=== PATIENT | male | born 1955 | race Caucasian/White ===

== ENCOUNTER 2022-03-17 10:46 | Outpatient (CLI) | payer MEDICARE, SELFPAY ==
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
--- OUTSIDE RECORDS SUMMARY | 2022-03-17 11:02 | XMS_ITS ---
:1955 Author Care Team Providers Name Role Phone JELLY LOFTON MD Primary Care Provider [phone] Allergies Code Code System Name Reaction Severity Status Onset Penicillin ? ? Active 8 Medications Name Status Start Date Stop Date ? ? coenzyme Q10 100 mg capsule Active ? Not available TAKE 1 CAPSULE BY MOUTH ONE TIME DAILY cyclobenzaprine 10 mg tablet Active ? Not available TAKE ? TO 1 TABLET (5-10MG) BY MOUTH THREE TIMES DAILY NEEDE D diclofenac 1 % topical gel Active ? Not a vailable APPLY TOPICALLY TO AFFECTED AREA 2 TO 4 GRAMS 4 TIMES DAILY NEEDED finasteride 5 mg tablet Active ? Not avai lable TAKE 1 TABLET BY MOUTH ONE TIME DAILY rosuvastatin 5 mg tablet Active ? Not luis antonio ilable TAKE 1 TABLET BY MOUTH ONE TIME DAILY triamcinolone acetonide 0.1 % topical ointment Active ? Not available APPLY TOPICALLY TO AFFECTED AREAS 2 TIMES DAILY NEEDED Problems Name Status Onset Date Source ? Raised Prostate Specific Antigen Active 07/21/2017 History Procedures Date Name Performed by ? 04/17/2011 Colonoscopy Information not avai lable Results Lab Results Date Name Specimen Result Interpretation Description Value Range Status Address ? 11/21/2020 PSA, Serum or Plasma ? PSA, Total 5.1 ng/m l ? ? 11/21/2020 PSA, Serum or Plasma ? No observation recor ded. ? ? ? 05/09/2020 PSA, Serum or Plasma ? No observation recor ded. ? PSA, Serum or Plasma ? PSA, Total 4.7 ng/ml ? ? Past Encounters 11/21/2020 Raised Prostate Specific Antigen; Indura tion Penis Plastica Saul Ramirez MD: [address] [place] [address], Ph. Social History Tobacco Smoking Status Never Smoker Vaccine List Notes: No pneumococcal vaccine given p er [facility] Plan of Care Reminders Provider Appointments None recorded. ? ? Lab None recorded. ? ? Referral None recorded. ? ? Procedures None recorded. ? ? Surgeries None recorded. ? ? Imaging None recorded. ? ? Vitals 11/21/2020 03:00PM ESTABLISHED 10 Height Weight BMI 6 ft 1 in 205 lbs 27 kg/m2 05/09/2020 08:50AM ESTABLISHED 10 Height Weight BMI 6 ft 1 in 205 lbs 27 kg/m2
[2022-03-17 15:31] LABS: Albumin* 4.6 g/dL (3.3-5.0); Chloride* 102 mmol/L (96-114)
[2022-03-17 15:32] LABS: Potassium* 4.7 mmol/L (3.6-5.1); Sodium* 139 mmol/L (135-149)
[2022-03-17 15:34] LABS: Alkaline Phosphatase* 81 U/L (40-150); Aspartate Amino Transferase* 22 U/L (12-35); Bilirubin Total* 0.5 mg/dL (0.1-1.5); Blood Urea Nitrogen* 17 mg/dL (7-30); Carbon Dioxide* 31 mmol/L (20-32); Cholesterol* 175 mg/dL (90-199); Creatinine* 0.8 mg/dL (0.5-1.5); Estimated Glomerular Filt Rate 96 ml/min; Total Protein* 7.2 g/dL (6.0-8.3)
[2022-03-17 15:35] LABS: Alanine Aminotransferase* 23 U/L (4-50); Calcium* 9.6 mg/dL (8.4-10.6); Glucose* 90 mg/dL (60-115); HDL Cholesterol* 34 mg/dL (>=40); LDL Cholesterol Calculated 91 mg/dL (<100); Triglycerides* 248 mg/dL (40-149)
== END 2022-03-17 10:47 | disposition home or self-care (01) ==
PROVIDERS: PCP Family Medicine; Visit Provider Family Medicine
DX: E78.1 Pure hyperglyceridemia (principal); R73.01 Impaired fasting glucose
CPT/HCPCS: 80053; 80061

== ENCOUNTER 2022-07-27 10:17 | Outpatient (CLI) | payer MEDICARE, SELFPAY | END 2022-07-27 10:18 | disposition home or self-care (01) | LOC: OP CLINIC 10:18 | PROVIDERS: PCP Family Medicine; Visit Provider Surgery | DX: Z12.11 Encounter for screening for malignant neoplasm of colon (principal); K63.5 Polyp of colon; K57.30 Diverticulosis of large intestine without perforation or abscess without bleeding | CPT/HCPCS: 45385; 88305; 99153; J2250; J3010 ==

== ENCOUNTER 2022-08-07 10:06 | Emergency (ER) | payer MEDICARE, SELFPAY ==
[2022-08-07 10:18] VITALS: BP 142/94; PULSE 105; RESP 20; TEMP 35.7; O2SAT 96; BMI 27.0
--- NOTE | 2022-08-07 10:39 | ED.NURSE ---
Patient with bladder scan reading at 660ml. Tobias catheter placed to fully drain bladder. 16 Fr tobias catheter inserted without issue. Keri color urined drained for 1000 plus ml with pink tinged urine draining at some minutes. Patient expresses relief in abdominal pressure.
[2022-08-07 11:04] LABS: Appearance Urine Cloudy (Clear); Bilirubin Urine Negative (Negative); Blood Urine 3+ (Negative); Color Urine Yellow (Yellow); Glucose Urine Negative (Negative); Ketones Urine Negative (Negative); Leukocyte Esterase Urine Negative (Negative); Nitrite Urine Negative (Negative); Protein Urine Negative (Negative); Urobilinogen Urine 0.2 (0.2-1.0)
[2022-08-07 11:06] LABS: Basophils Percent Auto 0.1 % (0.0-3.0); Eosinophils Percent Auto 0.8 % (0.0-7.0); Hematocrit 40.4 % (37.0-53.0); Hemoglobin* 13.6 gm/dL (13.5-17.5); Mean Corpuscular HGB Conc 34 gm/dL (32-36); Mean Corpuscular Hemoglobin 30 pg (26-34); Mean Corpuscular Volume 89 fL (80-100); Monocytes Percent Auto 9.8 % (0.0-11.0); Neutrophils Percent Auto 75.3 % (42.0-72.0); Platelet Count* 344 K/uL (140-440); RDW Coefficient of Variation % 12.7 % (11.5-15.5); Red Blood Count 4.56 m/uL (4.30-5.90); White Blood Count* 15.54 K/uL (4.50-11.00)
[2022-08-07 11:18] LABS: Slide Review Reflex No
[2022-08-07 11:19] LABS: Chloride* 107 mmol/L (96-114); Potassium* 4.5 mmol/L (3.6-5.1); Sodium* 140 mmol/L (135-149)
[2022-08-07 11:22] LABS: Blood Urea Nitrogen* 14 mg/dL (7-30); Carbon Dioxide* 28 mmol/L (20-32); Creatinine* 0.9 mg/dL (0.5-1.5); Estimated Glomerular Filt Rate 93 ml/min; Glucose* 105 mg/dL (60-115)
[2022-08-07 11:22] LABS: Bacteria Urine Few; RBC Urine >100 (0-2); Squamous Epithelial Cell Urine Few (None-Few)
[2022-08-07 11:23] LABS: Calcium* 8.9 mg/dL (8.4-10.6)
--- NOTE | 2022-08-07 11:39 | ED.GENADULT ---
HPI - General Adult General Chief complaint: Urogenital Problems, Male Stated complaint: Lower abdominal pain Time Seen by Provider: 08/07/22 10:30 Source: patient Mode of arrival: ambulatory Limitations: no limitations History of Present Illness HPI narrative: 66-year-old male coming in today complaining of lower abdominal pain for several days. Patient states that he has had decreased urine output for these last 3 days. He generally gets up 1-2 times per night to urinate but has not been able to urinate at night. He does state that he takes shower in the morning and then he urinates but he feels like he does not fully empty his bladder. This morning he woke up urinated a little bit during shower but felt worsening pressure and discomfort in his lower abdomen so he presents for evaluation. He denies any blood in his urine. He denies any nausea or vomiting. No fevers or chills. He was recently treated for strep pharyngitis with azithromycin which he just finished, throat is feeling much better. Patient does state that he has a history of BPH, has never had any urinary issues in the past. Related Data Home Medications Medication Instructions Recorded Confirmed acetaminophen 500 mg tablet mg PO PRN 03/17/22 08/03/22 ascorbate calcium (vitamin C) PO 03/17/22 08/03/22 coenzyme Q10 100 mg capsule 100 mg PO DAILY 03/17/22 08/07/22 finasteride 5 mg tablet 5 mg PO DAILY 03/17/22 08/07/22 magnesium oxide 250 mg PO DAILY 03/17/22 08/07/22 niacin 250 mg capsule,extended 250 mg PO QDAY 06/23/22 08/07/22 release Previous Rx's Medication Instructions Recorded rosuvastatin 5 mg tablet 5 mg PO DAILY #90 tabs 04/29/22 peg 3350-electrolytes 236 4,000 ml PO DIRECTED PRN prep 06/23/22 gram-22.74 gram-6.74 gram-5.86 #4,000 mL gram solution (Golytely) cephalexin 500 mg capsule 500 mg PO TID 7 days #21 caps 08/07/22 Allergies Allergy/AdvReac Type Severity Reaction Status Date / Time penicillin V Allergy Unknown Rash Verified 08/03/22 13:00 Review of Systems Status of ROS: Reports: 10 or more systems reviewed and unremarkable except as noted in History and below PFSH [facility] Medical History Encounter for annual wellness exam in Medicare patient History of echocardiography History of thyroid nodule Surgical History History of appendectomy History of radiofrequency ablation (RFA) procedure for cardiac arrhythmia History of tonsillectomy Family History Mother Alzheimers disease Father Prostate cancer Social History Narrative: Patient is retired. Drinks a little bit of wine daily. Smoking Status: Never smoker Do you use any of these nicotine containing products: None Second hand tobacco smoke exposure: No How often do you have a drink containing alcohol: never How many standard drinks containing alcohol do you have on a typical day: 1 or 2 AUDIT-C Alcohol total score: 0 Non-prescribed substance use: denies use Little interest or pleasure in doing things: not at all Feeling down, depressed, or hopeless: not at all Exam Narrative: Exam Narrative: Well-nourished well-developed patient in no acute distress. Alert and oriented. Answers questions appropriately. Mood and affect are appropriate. Thoughts are goal oriented and rational. No tangential or magical thinking noted. Patient speaks in full sentences without needing to catch their breath. HEENT: Normocephalic atraumatic. Pupils are equally round reactive to light. Extraocular muscles are intact. Conjunctivae are moist without any icterus noted. Moist mucous membranes. Posterior pharynx is normal. Neck is soft without any lymphadenopathy or thyromegaly. No masses are appreciated. Cardiovascular: Heart is regular rate and rhythm S1 and S2 are present without any murmurs. Lungs: Clear to auscultation bilaterally no wheezes rhonchi or rales are appreciated. Patient takes deep breaths without any discomfort. Abdomen: Soft and nontender nondistended with normal bowel sounds. No guarding or rebound. No masses or organomegaly appreciated. Extremities: Bilateral lower extremities are without edema. Normal DP and PT pulses. Skin: Well perfused without any obvious rashes. : Colón is in place, approximately 1300 mL of clear sanguinous urine was obtained. Const: Vital Signs, click to edit/add: Vital Signs - 24 hr 08/07/22 10:18 Temperature 96.2 F L Pulse Rate [Pulse Oximeter] 105 H Respiratory Rate 20 Blood Pressure [Le ft Upper Arm] 142/94 H Pulse Oximetry 96 Oxygen Delivery Me thod Room Air Course Course Hospital Course: Upon arrival patient did have a bladder scan which showed greater than 800 mL of urine, Colón was placed right away and approximately 1300 mL of pink clear urine was evacuated. Patient felt relief immediately from his discomfort. We did check a CBC which showed elevated white count at above 15,000, normal hemoglobin and hematocrit. Urinalysis showed blood, but no other evidence of infection. Of note, Colón placement was not difficult or traumatic. Vital Signs Vital signs: Initial Vital Signs Temperature 96.2 F L 08/07/22 10:18 Temperature Source Temporal Artery Scan 08/07/22 10:18 Pulse Rate 105 H 08/07/22 10:18 Pulse Rhythm 08/07/22 10:18 Respiratory Rate 20 08/07/22 10:18 Blood Pressure 142/94 H 08/07/22 10:18 Blood Pressure Mean 110 08/07/22 10:18 Blood Pressure Position Semi-Fowlers 08/07/22 10:18 Pulse Oximetry 96 08/07/22 10:18 Oxygen Delivery Method 08/07/22 10:18 Vital Signs Temperature 96.2 F L 08/07/22 10:18 Pulse Rate 105 H 08/07/22 10:18 Respiratory Rate 20 08/07/22 10:18 Blood Pressure 142/94 H 08/07/22 10:18 Pulse Oximetry 96 08/07/22 10:18 Oxygen Delivery Method 08/07/22 10:18 Temperature 96.2 F L 08/07/22 10:18 Pulse Rate 105 H 08/07/22 10:18 Respiratory Rate 20 08/07/22 10:18 Blood Pressure 142/94 H 08/07/22 10:18 Pulse Oximetry 96 08/07/22 10:18 Oxygen Delivery Method 08/07/22 10:18 Medical Decision Making MDM Narrative Medical decision making narrative: 66-year-old male with urinary retention and gross hematuria. At this time we will treat him with Keflex t.i.d. and have him follow up with primary care in 3-4 days and Urology if needed. Colón will be left in place until patient has primary care follow-up. Patient was agreeable and had no other questions. Lab Data Lab results reviewed: Yes I reviewed the patient's lab results Labs: Lab Results 08/07/22 08/07/22 08/07/22 Range/Units 10:30 10:57 10:57 WBC 15.54 H (4.50-11.00) K/uL RBC 4.56 (4.30-5.90) m/uL Hgb 13.6 (13.5-17.5) gm/dL Hct 40.4 (37.0-53.0) % MCV 89 (80-100) fL MCH 30 (26-34) pg MCHC 34 (32-36) gm/dL RDW Coeff of Baldo 12.7 (11.5-15.5) % Plt Count 344 (140-440) K/uL Neut % (Auto) 75.3 H (42.0-72.0) % Lymph % (Auto) 12.0 L (20-44) % Castro % (Auto) 9.8 (0.0-11.0) % Eos % (Auto) 0.8 (0.0-7.0) % Baso % (Auto) 0.1 (0.0-3.0) % Neut # (Auto) 11.70 H (1.7-7.0) K/uL Lymph # (Auto) 1.90 (0.90-2.90) K/uL Castro # (Auto) 1.50 H (0.00-0.90) K/UL Eos # (Auto) 0.10 (0.00-0.50) K/uL Baso # (Auto) 0.00 (0.00-0.30) K/uL Sodium 140 (135-149) mmol/L Potassium 4.5 (3.6-5.1) mmol/L Chloride 107 (96-114) mmol/L Carbon Dioxide 28 (20-32) mmol/L BUN 14 (7-30) mg/dL Creatinine 0.9 (0.5-1.5) mg/dL Estimated Creat Clear 79.90 Estimated GFR 93 ml/min Glucose 105 (60-115) mg/dL Calcium 8.9 (8.4-10.6) mg/dL Urine Color Yellow (Yellow) Urine Appearance Cloudy A (Clear) Urine pH 6.0 (5.0-8.5) Ur Specific [place] 1.010 (1.000-1.030) Urine Protein Negative (Negative) Urine Glucose (UA) Negative (Negative) Urine Ketones Negative (Negative) Urine Blood 3+ A (Negative) Urine Nitrite Negative (Negative) Urine Bilirubin Negative (Negative) Urine Urobilinogen 0.2 (0.2-1.0) Ur Leukocyte Esterase Negative (Negative) Urine RBC >100 A (0-2) Urine WBC 5-10 A (0-5) Ur Squamous Epith Cells Few (None-Few) Urine Bacteria Few A (None) Discharge Plan Discharge Clinical Impression: Hematuria, Acute urinary retention Patient Disposition: Home, Self-Care Condition: Stable Additional Instructions: Follow-up with primary care provider in the next 3-4 days to have the Colón removed. Start antibiotic and take as prescribed. Prescriptions: New cephalexin 500 mg capsule 500 mg PO TID 7 Days Qty: 21 0RF No Action magnesium oxide 250 mg magnesium tablet 250 mg PO DAILY finasteride 5 mg tablet 5 mg PO DAILY acetaminophen 500 mg tablet PO PRN Rx Instructions: NO MORE THAN 4000 MG/DAY coenzyme Q10 100 mg capsule 100 mg PO DAILY ascorbate calcium (vitamin C) PO niacin 250 mg capsule, extended release 250 mg PO QDAY peg 3350-electrolytes [Golytely] 236-22.74-6.74 -5.86 gram recon soln 4,000 ml PO DIRECTED PRN (Reason: prep) Qty: 4000 0RF Rx Instructions: 1 day prior to scopes, between 4 and 6 p.m., drink 8 oz glass every 15 minutes until half a gallon is gone. 6 hours prior to procedure, drink 8 oz glass every 15 minutes until second half gallon is gone. rosuvastatin 5 mg tablet 5 mg PO DAILY Qty: 90 3RF Follow Up/Referrals: Feliciano Galloway MD [Primary Care Provider] - Stand Alone Forms: [employer] Info Instructions
--- NOTE | 2022-08-07 12:20 | ED.NURSE ---
Catheter education completed and signs and symptoms requiring return to the ED were discussed. Patient was changed to leg bag and return demonstration completed.
== END 2022-08-07 12:23 | disposition home or self-care (01) ==
PROVIDERS: Emergency Provider Family Medicine; PCP Family Medicine
DX: R31.9 Hematuria, unspecified (principal); R33.9 Retention of urine, unspecified
CPT/HCPCS: 36415; 51702; 80048; 81001; 85025; 87086; 99283; 99284

== ENCOUNTER 2023-01-12 08:00 | Outpatient (RCR) | payer MEDICARE, SELFPAY ==
--- NOTE | 2022-12-28 10:43 | PT.OPE ---
PT [facility] Out[facility] Eval PT [facility] Outpatient Eval Start: 12/28/22 07:22 Freq: Status: Active Protocol: Document 12/28/22 10:41 CJT (Rec: 12/28/22 10:43 CJT [id number]) E-signed By Asher Machuca PT Physical Therapy Outpatient Evaluation Insurance Information Recert Due Date 03/28/23 Insurance Name Medicare B Medical Diagnosis M54.6 - Dorsalgia Treating Diagnosis M54.5 - low back pain S39.012 - Low back strain Referring Feliciano Jones MD Subjective Subjective A week and a half ago, pt reports he was moving a lawn chair that he has moved many times in the past. His low back started hurting. Within a day he was not able to stand straight. Couldn't put his pants on I. Once he was stood up he could walk but had to walk hunched over. Pt notes that his pain was in the middle of his lumbar spine but has transitioned into R SIJ region now. Heat and ice was minimally helpful. Pt notes this happened about 2.5 years ago. Pt has always had some amount of back pain. Pt also complains of occasional pains in his hips. Pt denies numbness, weakness in LEs. Pain Comments Currently: 06/09 Initially: 02/07 Current Work Status Retired Precautions Therapy Limitations/Systems Review Not Limited Objective Other/Pertinent Objective Lumbar ROM Extension - 24 Flexion - 75 R/L Side Bend - 20/22 R/L Rotation - mild impairments bilaterally R Hip ROM Flexion - 120 IR/ER - 38/32 L Hip ROM Flexion - 120 IR/ER - 36/32 R knee ROM - WNL L knee ROM - WNL Upper Abdominals - 4/5 MMT Lower Abdominals - 3/5 MMT R Hip Strength Flexion - 3+/5 MMT Abduction - 3+/5 MMT Adduction - 4+/5 MMT IR - 4+/5 MMT ER - 4+/5 MMT Extension - DNT L Hip Strength Flexion - 3+/5 MMT Abduction - 3+/5 MMT Adduction - 5/5 MMT IR - 4/5 MMT ER - 4/5 MMT Extension - DNT R knee Extension - 5/5 MMT R Knee Flexion - 5/5 MMT L knee Extension - 5/5 MMT L knee Flexion - 5/5 MMT R ankle DF - 5/5 MMT L ankle DF - 5/5 MMT Palpation: pt reports pain/ tenderness with palpation to B iliacus, lumbar paraspinals, R QL, glute med, glute min, piriformis Assessment Assessment/Impression Ignacio is a very pleasant 67 year old male who presents to our clinic for evaluation of low back pain. Pts back was injured when he was lifting a large lawn chair at his house. Pts pain is now much improved since initial onset. I suspect this is largely due to the steroid dose pack he was prescribed. Testing reveals deficits in pts core and LE strength (see objective). While he does not have a low of palpable muscle pain outside his B iliacus, it is clear that the muscles supporting Ignacio's hips have begun to atrophy and are all quite small in size. Testing for disc herniation and radiculopathy is negative at this time. I suspect that Ignacio is dealing with a lumbar strain with subsequent muscle spasms and will benefit from basic mobility exercises, stretching, and core and hip strengthening. The nature of the pts condition was explained and all questions were answered to the pts satisfaction. Skilled PT services are medically necessary to address deficits and return patient to highest level of function. Recommend physical therapy sessions 1-2/ week for 4-8 weeks. Pt states he would like to schedule 1/ week for 3 weeks initially and determine if further PT is required. We will assist him in scheduling these appointments today. Printout of HEP was given for I completion and pt gives verbal understanding of each exercise. Primary Functional Limitations Lifting, walking Plan of Care Rehabilitation Potential Excellent Physical Therapy Goals STG - To be completed in 2-3 weeks: 1. Pt will report no more than 2/10 pain in his low back with all activities so that he may continue to perform all ADLs with manageable level of pain. 2. Pt will demo good body mechanics while lifting objects in therapy gym so that he may utilize similar techniques when lifting furniture at home to reduce risk of reinjury. LTG - To be completed in 6-8 weeks: 1. Pt to be I with HEP so that he may I manage progression of symptoms. 2. Pt will demo 5/5 MMT for all LE motions B to provide greater support to his pelvis and lumbar spine. 3. Pt will demo at least 4/5 MMT for lower abdominals to provide greater support to lumbar spine and reduce risk of reinjury. Treatment Plan/Direct Interventions Electrical Stimulation,Heat, Joint Mobilization,Manual Therapy,Neuromuscular Re-ed, Self-Care/Home Management, Therapeutic Exercises Frequency/Duration 1-2/week for 4-8 weeks Patient Will Be Discharged From Therapy Completion of LTG(s),Skills Plateau,Independent w/HEP, Independently Progressing Evaluation Billing Untimed Code Treatment Minutes 40 PT Eval No Charge No Complexity Low Certification Information Initial Certification Date 12/28/22 Ending Certification Date 03/28/23 Provider Signature Shows Agreement With POC & Medical Necessity Physician Signature & Date Requested Please Sign/Date Here Physician Comment/Change : Physician NPI Number #
== END 2023-02-17 09:28 | disposition home or self-care (01) ==
PROVIDERS: PCP Family Medicine; Visit Provider Family Medicine
DX: S39.012A Strain of muscle, fascia and tendon of lower back, initial encounter (principal); Z51.89 Encounter for other specified aftercare
CPT/HCPCS: 97110; 97161

== ENCOUNTER 2023-04-19 08:57 | Outpatient (CLI) | payer MEDICARE, SELFPAY | END 2023-04-19 08:58 | disposition home or self-care (01) | LOC: NFLDREF 04-23 11:56 | PROVIDERS: PCP Family Medicine; Referring Provider Family Medicine; Visit Provider Family Medicine | DX: Z00.00 Encounter for general adult medical examination without abnormal findings (principal); E78.1 Pure hyperglyceridemia; R97.20 Elevated prostate specific antigen [PSA]; R31.9 Hematuria, unspecified | CPT/HCPCS: 80053; 80061; 84153 ==

== ENCOUNTER 2023-05-27 08:31 | Outpatient (CLI) | payer MEDICARE, SELFPAY ==
--- OUTSIDE RECORDS SUMMARY | 2023-05-28 22:12 | XMS_ITS | Continuity of Care Document ---
Author Name Unknown Organization [facility] Address [address] [address] [place] [address] Phone Care Team Providers Care Virtual Recruiter Name Role Phone Bobo MILLER, Unavailable Unavailable Advance Directives Directive Yes / No Effective Date File Name No Information Encounters Encounter Description Practice Location Reason(s) For Visit Diagnoses Date Provider Providers Copied on Encounter [facility], [address] [address], [place], [place], [id number], [place] tel:[phone] [facility] No Information Bobo MILLER Jalen. [address] [facility], [facility] [address], [place], [place], [id number], [place]. tel:[phone] Referring Provider: Jaspal Edwards MD, [address] [place] [address], [address]. tel:[phone] Family History Family Member Type Diagnosis Age At Onset No Information Payers Payer name Insurance type Covered democrat ID Authoriza tion(s) No Information Social History Type Description Quantity Date Captured Comments Sex Male Smoking Status No Information Chief Complaint And Reason For Visit No Information Reason For Referral Reason For Referral No Information History Of Present Illness Encounter Date Complaint History Of Prese nt Illness No Information Functional Status Date Functional Assessmen t No Information Instructions Date Instruction Additional Infor mation No Information Assessments Type Assessment Date No Information Patient Care Teams Name Effective Dates (start - stop) Status Members No Information
== END 2023-05-27 08:32 | disposition home or self-care (01) ==
LOC: NFLDREF 05-28 22:10
PROVIDERS: PCP Family Medicine; Referring Provider Family Medicine; Visit Provider Family Medicine
DX: R97.20 Elevated prostate specific antigen [PSA] (principal)
CPT/HCPCS: 84153; 84154

== ENCOUNTER 2023-06-04 10:40 | Outpatient (CLI) | payer MEDICARE, SELFPAY | END 2023-06-04 10:41 | disposition home or self-care (01) | LOC: RAD 10:42 | PROVIDERS: PCP Family Medicine; Visit Provider Family Medicine | DX: I77.810 Thoracic aortic ectasia (principal) | CPT/HCPCS: 93306 ==

== ENCOUNTER 2024-04-19 08:02 | Outpatient (CLI) | payer MEDICARE, SELFPAY ==
--- OUTSIDE RECORDS SUMMARY | 2024-04-22 23:15 | XMS_ITS | Data Portability ---
Author Organization [facility] Sumilo gy, [facility] Address [address] [place] [address] Assessment Encounter Date Assessment Date Assessment LastModified by Organization Details LastModified Time 05/09/2020 05/09/2020 Of note a total of 45minutes was spent reviewing records and in discussion with patient, >50 % of which was in coordination and counseling. [email or web address] Not available 05/09/2020 10:35:59 11/21/2020 11/21/2020 Of note a total of 30minutes was spent reviewing records and in discussion with patient, >50 % of which was in coordination and counseling. [email or web address] Not available 11/21/2020 16:26:32 Plan of Treatment Reminders Order Date Submit Date Provider Last Modified By Organization Details Last Modified Time Details Appointments None recorded . Lab PSA, serum or plasma 2019 020 [email or web address] Not available 0 10:10:49 PSA, serum or plasma 2020 021 [email or web address] Not available 1 16:23:12 PSA, serum or plasma 2022 023 [email or web address] [facility], [address], [place], [address], 3 10:52:49 urinalys is, dipstick 2022 023 [email or web address] [facility], [address], [place], [address], 3 11:48:44 PSA, serum or plasma 2023 024 [email or web address] [facility], [address], [place], [address], 4 11:56:11 Referral None recorded . Procedures None recorded . Surgeries None recorded . Imaging MRI, prostate , w/wo contrast 2023 024 [email or web address] [facility], [address], [place], [address], 4 08:47:46 Medication Orders None recorded . Patient TargetsNo targets recorded. Patient Instructions Encounter Date Encounter Id Patient Instructions Last Modified By Organization Details Last Modified Time 05/09/2020 [id number] Ignacio Wiggins angela has a new diagnosis of Peyronies disease; not bothered by this, actually his noted it @ 6months ago. Discussed natural hx of this scarring process. Sit tight right now as no angulation. Re: his PSA, started on finasteride over a yr ago for a very large prostate found on negative biopsy of the prostate in 2018. PSA today is 4.7, certainly nice response to prebx PSA a couple of yrs ago over 7. However, his PVR is up and will need to keep an eye on this. He feels he empties so may be artifactual. I'll see back in summer of 2020. James cody Not available 05/09/2020 10:35:47 11/21/2020 [id number] peyronie's disease education escobar Not available 11/21/2020 16:26:33 At present, PSA is relatively stable on finasteride now 3 yrs. Reviewed PSA screening pros and cons. Discussed Rx options for Peyronies disease which has actually improved spontaneously. Rx=0 escobar Not available 11/21/2020 16:26:10 Reason for Referral None Reported. Results Created Date Observation Date Name Description Value Unit Range Abnormal Flag Note LastModifiedBy Organization Detail LastModifiedTime 05/09/2020 PSA, serum or plasm a PSA, Total 4.7 ng/ml Not Available [facility] [address], [place], [address], 05/09/2020 10:10:35 11/22/19 21 11/21/2020 PSA, serum or plasm a PSA, Total 5.1 ng/ml Not Available [facility] [address], [place], [address], 11/21/2020 15:58:29 06/04/19 23 06/04/2022 PSA, serum or plasm a PSA 3.7 ng/mL 0-4.0 Not Available [facility] [address], [place], [address], 06/04/2022 10:52:36 08/21/1908/20/2022 urina lysis , dipst ick Color-Status Yellow Not Available [facility] [address], [place], [address], 08/20/2022 11:47:48 08/21/19 23 08/20/2022 urina lysis , dipst ick Clarity-Stat us Clear Not Available [facility] [address], [place], [address], 08/20/2022 11:47:48 08/21/19 23 08/20/2022 urina lysis , dipst ick Glucose-Stat us Negati ve Not Available [facility] [address], [place], [address], 08/20/2022 11:47:48 08/21/1908/20/2022 urina lysis , dipst ick Bilirubin-St atus Negati ve Not Available [facility] [address], [place], [address], 08/20/2022 11:47:48 08/21/19 23 08/20/2022 urina lysis , dipst ick Ketones-Stat us Negati ve Not Available [facility] [address], [place], [address], 08/20/2022 11:47:48 08/21/19 23 08/20/2022 urina lysis , dipst ick Sp Dunsmuir-Stat us 1.010 Not Available [facility] [address], [place], [address], 08/20/2022 11:47:48 08/21/19 23 08/20/2022 urina lysis , dipst ick Urobilinogen -Status 0.2 Not Available [facility] [address], [place], [address], 08/20/2022 11:47:48 08/21/19 23 08/20/2022 urina lysis , dipst ick Nitrates-Sta tus negati ve Not Available [facility] [address], [place], [address], 08/20/2022 11:47:48 08/21/19 23 08/20/2022 urina lysis , dipst ick Blood-Status Trace Not Available [facility] [address], [place], [address], 08/20/2022 11:47:48 08/21/19 23 08/20/2022 urina lysis , dipst ick Leuko-Status Negati ve Not Available [facility] [address], [place], [address], 08/20/2022 11:47:48 08/21/19 23 08/20/2022 urina lysis , dipst ick Specimen Type Voided Not Available [facility] [address], [place], [address], 08/20/2022 11:47:48 06/23/19 24 06/23/2023 PSA, serum or plasm a PSA 8.8 ng/mL 0-4.0 Not Available [facility] [address], [place], [address], 06/23/2023 11:55:45 05/10/20 20 04/30/2020 bladd er scan (PROC ) No observ ation record ed. [email or web address] Not Available 2019 08:41:41 11/23/19 21 11/21/2020 bladd er scan (PROC ) No observ ation record ed. [email or web address] Not Available 2022 12:22:22 07/05/19 24 07/03/2023 MRI, prost ate, w/wo contr ast No observ ation record ed. [facility] [address], [place], [address], 07/09/2023 11:17:20 Result Notes None recorded. Problems Name Problem SNOMED Code Status Onset Date Resolution Date Notes Provider Name and Address Organization Details Recorded Time Prostate specific antigen above reference range 200166053 Active 2017 R97.20 : Elevated prostate specific antigen [PSA] Not Available Critical access hospital 0 01:56:47 Problem Notes None recorded. Procedures Surgical History Date Name Laterality Status Provider Name and Address Organization Details Recorded Time 06/23/19 Bladder Scan completed Reena Rodriguez [facility] 06/23/2023 11:54:59 06/23/19 Blood Draw/DEPLOYMENT ENGINEER/PSA RESULTS completed Reena Rodriguez [facility] 06/23/2023 11:51:01 08/21/19 23 Bladder Scan completed Ruby Jay PA-C [address], [place], [address], [facility] 08/20/2022 11:57:53 06/04/19 23 Blood Draw/DEPLOYMENT ENGINEER/PSA RESULTS completed Reena Rodriguez [facility] 06/04/2022 10:52:32 11/22/19 Bladder Scan completed Saul Ramirez [facility] 11/21/2020 15:59:43 11/22/19 Blood Draw/DEPLOYMENT ENGINEER/PSA RESULTS completed Saul Ramirez [facility] 11/21/2020 15:58:19 12/10/20 20 Bladder Scan completed Saul Ramirez [facility] 05/09/2020 10:02:29 05/09/20 20 Blood Draw/DEPLOYMENT ENGINEER/PSA RESULTS completed Saul Ramirez [facility] 05/09/2020 10:02:46 04/17/20 11 Colonoscopy completed Nikky Galindo [facility] 01/17/2021 15:48:20 Imaging Results Imaging Date Name Status LastModified by Organiz ation Details LastModified Time 04/30/2020 bladder scan (PROC) completed [email or web address] Information not available 05/13/2020 08:41:41 11/21/2020 bladder scan (PROC) completed [email or web address] Information not available 06/04/2022 12:22:22 07/03/2023 MRI, prostate, w/wo contrast completed DEEP GAP [facility] [address], [place], [address], 07/09/2023 11:17:20 Procedure Notes None recorded. Medical Equipment None Reported. Allergies Allergen ID Allergen Name Allergen Category Reaction Reaction Severity Criticality Documentation Date Start Date Code Code System Note Provider Name and Address Organization Details Recorded Time 538866 Penicilli n Not available Not available Not available Not available 11/16/20192017 49544 RxNorm Not Available Critical [facility] hospital 0 00:44:34 Medications Name Sig Start Date Stop Date Status Note LastModified by Organization Details LastModified Time cyclobenzap rine 10 mg tablet TAKE ONE TABLET BY MOUTH THREE TIMES DAILY NEEDED FOR MUSCLE SPASM* active Not Available Not Available No t Available azithromyci n 250 mg tablet TAKE 2 TABLETS BY MOUTH ON DAY 1, THEN 1 TABLET DAILY ON DAYS 2-5 08/20 completed Not Available Not Available Not Available hydrocodone 5 mg-acetamin ophen 325 mg tablet TAKE 1 TO 2 TABLETS BY MOUTH 3 TIMES DAILY* 06/23 completed Not Available Not Available Not Available sulfamethox azole 800 mg-trimetho prim 160 mg tablet TAKE 1 TABLET BY MOUTH TWICE DAILY 06/23 completed Not Available Not Available Not Available tamsulosin 0.4 mg capsule TAKE 1 CAPSULE BY MOUTH AT BEDTIME active Not Available Not Available No t Available phenazopyri dine 100 mg tablet TAKE ONE TABLET BY MOUTH THREE TIMES DAILY as needed for pain for 6 doses 06/23 completed Not Available Not Available Not Available cephalexin 500 mg capsule TAKE ONE CAPSULE BY MOUTH THREE TIMES DAILY FOR 7 DAYS 08/20 completed Not Available Not Available Not Available triamcinolo ne acetonide 0.1 % topical ointment APPLY TOPICALLY TO AFFECTED AREAS 2 TIMES DAILY NEEDED 06/04 completed Not Available Not Available Not Available methylpredn isolone 4 mg tablets in a dose pack TAKE PER PACKAGE INSTRUCTI ONS* 06/23 completed Not Available Not Available Not Available finasteride 5 mg tablet TAKE 1 TABLET BY MOUTH ONE TIME DAILY 2023 active Not Available Not Available Not Avai lable coenzyme Q10 100 mg capsule TAKE 1 CAPSULE BY MOUTH ONE TIME DAILY active Not Available Not Available No t Available rosuvastati n 5 mg tablet TAKE 1 TABLET BY MOUTH ONE TIME DAILY* active Not Available Not Available No t Available Vitamin C active Not Available Not Jessy ilable Not Available niacin active Not Available Not Availa ble Not Available diclofenac 1 % topical gel APPLY TOPICALLY TO AFFECTED AREA 2 TO 4 GRAMS 4 TIMES DAILY NEEDED 06/04 completed Not Available Not Available Not Available GaviLyte-G 236 gram-22.74 gram-6.74 gram-5.86 gram oral solution 1 day prior to scopes, between 4 and 6 p.m., drink 8 oz glass every 15 minutes until half a gallon is gone; 6 hours prior to procedure , [email or web address] 08/20 completed Not Available Not Available Not Available Vitals Date Recorded Body height Body mass index (BMI) Body weight Provider Name and Address Organization Details Last Updated DateTime 06/04/2022 185.42 cm 27 kg/m2 71185.44 g Reena Rodriguez [facility] 06/04/2022 10:52:10 Date Recorded Body height Body mass index (BMI) Body weight Provider Name and Address Organization Details Last Updated DateTime 08/20/2022 185.42 cm 27 kg/m2 90176.44 g Jeana Hernandez [facility] 08/20/2022 11:28:21 Date Recorded Body height Body mass index (BMI) Body weight Provider Name and Address Organization Details Last Updated DateTime 06/23/2023 185.42 cm 25.1 kg/m2 35608.55 g Reena Rodriguez [facility] 06/23/2023 11:56:26 Date Recorded Body height Body mass index (BMI) Body weight Provider Name and Address Organization Details Last Updated DateTime 05/09/2020 185.42 cm 27 kg/m2 45365.44 g Saul James [facility] 05/09/2020 09:59:27 Date Recorded Body height Body mass index (BMI) Body weight Provider Name and Address Organization Details Last Updated DateTime 11/21/2020 185.42 cm 27 kg/m2 61856.44 radha Hughes James [facility] 11/21/2020 15:56:27 Social History Question Answer Notes LastModified by Organizat ion Details LastModified Time Tobacco Smoking Status Never Smoker Saul James mo [facility] 05/09/2020 09:59:39 What Is Your Level Of Alcohol Consumption? Occasional Information not available 06/23/2023 What Was The Date Of Your Most Recent Tobacco Screening? 06/23/2023 Information not available 06/23/2023 Has Tobacco Cessation Counseling Been Provided? No Information not available 06/23/2023 Do You Or Have You Ever Used Any Other Forms Of Tobacco Or Nicotine? No Information not available 06/23/2023 Sex: Unknown Functional Status None recorded. Mental Status None recorded. Family History Relationship Description Onset Age of this Age Resolved Age Notes LastModified by Organization Details LastModified Time Father Family history of malignant neoplasm of prostate wutz Not available 2019 09:59:37 Medical History Condition Response High Blood Pressure N Kidney Stones N Depression N Cancer N High Cholesterol Y Diabetes N Immunizations Vaccine Type Date Status Provider Name and Address Organization Details Recorded Time Influenza, split virus, trivalent, preservative 03/02/2003 completed Celina mo [facility] 04/01/2023 11:26:54 Td (adult), 2 Lf tetanus toxoid, preservative free, adsorbed 02/02/2003 completed Celina mo [facility] 04/01/2023 11:26:54 Past Encounters Encounter ID Performer Location Encounter Start Date Encounter Closed Date Diagnosis/Indication Diagnosis SNOMED-CT Code Diagnosis ICD10 Code [id number] Saul [facility] 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 [place] [address] 11/21/2020 15:44:58 11/22/2020 11:44:06 Prostate specific antigen above reference range 394945992 R97.20 Induration penis plastica 1846290 N48.6 [id number] Sterling Bass MD [facility] [address] [place] [address] 06/04/2022 10:46:23 06/08/2022 08:13:54 Prostate specific antigen above reference range 015727069 R97.20 Induration penis plastica 7722183 N48.6 [id number] Ruby Jay PA-C [facility] [address] [place] [address] 08/20/2022 11:26:42 08/21/2022 10:53:31 Retention of urine 419039752 R33.9 Prostate s pecific antigen above reference range 980849648 R97.20 Induration penis plastica 0980073 N48.6 Blood in urine 82883208 R31.9 [id number] [facility] [address] [place] [address] 06/23/2023 11:04:50 06/23/2023 15:14:43 Prostate specific antigen above reference range 594665025 R97.20 Induration penis plastica 4672512 N48.6 Slowing of urinary stream 37164361 R39.12 Health Concerns Section Related Observation LastModified by Organization Detai ls LastModified Time None Recorded Concern Status LastModified by Organization Details LastModified Time None Recorded Advance Directives Directive None Recorded Payers Encounter Date Sequence Insurance Name Policy Number Policy Jaeger Covered Member ID Jaeger Member ID Guarantor Name 05/09/2020 1 [employer] (MEDICARE [place]AC[place] PPO) [id number] Ignacio Tomas [id number] 06/04/2022 1 [facility] (MEDICARE REPLACEMENT/AD VANTAGE - PPO) [id number] Ignacio Tomas [id number] 08/20/2022 1 [facility] (MEDICARE REPLACEMENT/AD VANTAGE - PPO) [id number] Ignacio Tomas [id number] 06/23/2023 1 [facility] (MEDICARE REPLACEMENT/AD VANTAGE - PPO) [id number] Ignacio Tomas [id number] Notes Date Note Type Note Provider Name and Address Organization Details Recorded Time 05/09/2020 text/html 10-14-17 s/p TRUS with bx was negative for cancer (Positive for chronic inflammation and very large gland, over 110 gms) . Started finasteride @ one yr ago. PSA prior was 7.2, Clearly better , less urgency and frequency on this 5ARI. He feels he voids yet PVR is now over 140 ml, was zero a yr agompMRI in 05/18 found a small PI-RADS=3 lesion in the CZ, 7mm in size. His noted a narrowing in the penis, no angulation @ 6 months ago. No pain No softening of erections . Saul om MS - [facility] 05/09/2020 10:36:39 11/21/2020 text/html 10-14-17 s/p TRUS with bx was negative for cancer (Positive for chronic inflammation and very large gland, over 110 gms) . On finasteride. PSA prior was 7.2, Clearly better , less urgency and frequency on this 5ARI started in 2017mpMRI in 05/18 found a small PI-RADS=3 lesion in the CZ, 7mm in size.Last PSA= 4.7 (05-09-20). [id number] s/p TRUS with bx was negative for cancer (Positive for chronic inflammation and very large gland, over 110 gms) . On finasteride. PSA prior was 7.2, Clearly better , less urgency and frequency on this 5ARI.mpMRI in 05/18 found a small PI-RADS=3 lesion in the CZ, 7mm in size.Last PSA= 4.7 (0), PSA today is 5.1. ALso, notes persistent flobbiness with peyronies at the base of the penis, was painful, now it's gone.. Saul Ramirez null, [facility] 11/21/2020 16:27:00 06/04/2022 text/html 517-18 s/p TRUS with bx was negative for cancer (Positive for chronic inflammation and very large gland, over 110 gms) . On finasteride. PSA prior was 7.2, Clearly better , less urgency and frequency on this 5ARI started in 2017mpMRI in 05/18 found a small PI-RADS=3 lesion in the CZ, 7mm in size. Last PSA= 4.7 (05-09-20) 5-17-18 s/p TRUS with bx was negative for cancer (Positive for chronic inflammation and very large gland, over 110 gms) . On finasteride. PSA prior was 7.2, Clearly better , less urgency and frequency on this 5ARI.mpMRI in 05/18 found a small PI-RADS=3 lesion in the CZ, 7mm in size. Last PSA= 4.7 (), PSA today is 5.1. ALso, notes persistent flobbiness with peyronies at the base of the penis, was painful, now it's gone. 06/04/2022 (Shelia):Mr. Tomas is a very pleasant 66-year-old gentleman who previously followed with my partner, Dr. Ramirez, regarding elevated PSA status post negative TRUS biopsy. He has also been dealing with some urinary frequency and urgency so has been maintained on finasteride. PSA today = 3.7 ng/mL Sterling Bass MD [address] [place] [address],[address], [place], [address], [facility] 06/04/2022 12:23:18 08/20/2022 text/html 5-17-18 s/p TRUS with bx was negative for cancer (Positive for chronic inflammation and very large gland, over 110 gms) . On finasteride. PSA prior was 7.2, Clearly better , less urgency and frequency on this 5ARI started in 2017mpMRI in 05/18 found a small PI-RADS=3 lesion in the CZ, 7mm in size. Last PSA= 4.7 (05-09-20) 5-17-18 s/p TRUS with bx was negative for cancer (Positive for chronic inflammation and very large gland, over 110 gms) . On finasteride. PSA prior was 7.2, Clearly better , less urgency and frequency on this 5ARI.mpMRI in 05/18 found a small PI-RADS=3 lesion in the CZ, 7mm in size. Last PSA= 4.7 (12-1020), PSA today is 5.1. ALso, notes persistent flobbiness with peyronies at the base of the penis, was painful, now it's gone. 06/04/2022 (Shelia):Mr. Tomas is a very pleasant 66-year-old gentleman who previously followed with my partner, Dr. Ramirez, regarding elevated PSA status post negative TRUS biopsy. He has also been dealing with some urinary frequency and urgency so has been maintained on finasteride. PSA today = 3.7 ng/mL 08/20/22 (Misty): Former Dr. Ramirez patient, now follows with Dr. Bass.Here today for follow up of urinary retention. Had a routine colonoscopy and was treated for strep throat, then a few days later was seen at [facility] on 08/07 for inability to void. He reports 1.5 L was drained from bladder. Colón catheter was placed, and he was started on antibiotics for UTI. Colón was removed 4 days later by PCP, and his antibiotics were changed at that time. Has 3-4 days of antibiotics remaining. PCP also started him on tamsulosin 0.4 mg daily. Some lingering dysuria after catheter removal, but improving thus far. Reports small area of dry skin on the glans. Denies gross hematuria, fever, or chills. Unfortunately, outside records not available at time of visit today. UA today trace lysed blood, o/w negPVR today 92 cc Ruby Jay PA-C [address] [place] [address],[address], [place], [address], [facility] 08/20/2022 17:40:09 06/23/2023 text/html 10-14-17 s/p TRUS with bx was negative for cancer (Positive for chronic inflammation and very large gland, over 110 gms) . On finasteride. PSA prior was 7.2, Clearly better , less urgency and frequency on this 5ARI started in 2018mpMRI in 05/18 found a small PI-RADS=3 lesion in the CZ, 7mm in size. Last PSA= 4.7 (05-09-) 5-17-18 s/p TRUS with bx was negative for cancer (Positive for chronic inflammation and very large gland, over 110 gms) . On finasteride. PSA prior was 7.2, Clearly better , less urgency and frequency on this 5ARI.mpMRI in 05/18 found a small PI-RADS=3 lesion in the CZ, 7mm in size. Last PSA= 4.7 (), PSA today is 5.1. ALso, notes persistent flobbiness with peyronies at the base of the penis, was painful, now it's gone. 06/04/2022 (Shelia):Mr. Tomas is a very pleasant 66-year-old gentleman who previously followed with my partner, Dr. Ramirez, regarding elevated PSA status post negative TRUS biopsy. He has also been dealing with some urinary frequency and urgency so has been maintained on finasteride. PSA today = 3.7 ng/mL 08/20/22 (Misty): Former Dr. Ramirez patient, now follows with Dr. Bass.Here today for follow up of urinary retention. Had a routine colonoscopy and was treated for strep throat, then a few days later was seen at [facility] on 08/07 for inability to void. He reports 1.5 L was drained from bladder. Colón catheter was placed, and he was started on antibiotics for UTI. Colón was removed 4 days later by PCP, and his antibiotics were changed at that time. Has 3-4 days of antibiotics remaining. PCP also started him on tamsulosin 0.4 mg daily. Some lingering dysuria after catheter removal, but improving thus far. Reports small area of dry skin on the glans. Denies gross hematuria, fever, or chills. Unfortunately, outside records not available at time of visit today. UA today trace lysed blood, o/w negPVR today 92 cc 06/23/2023:Here for follow up elevated PSA, Peyronie's disease, urinary retention now resolved. Maintained on combination therapy finasteride and tamsulosin. PSA today 8.8 ng/mL Sterling Bass MD [address], [place], [address], [facility] 06/23/2023 13:48:56
--- OUTSIDE RECORDS SUMMARY | 2024-04-22 23:15 | XMS_ITS | Clinical Summary ---
Author Organization [facility] Address [address] [place] [address] Care Team Providers Care Cinema Operator Name Role Phone Davonte Alvarado MD Primary Care Provider [phone] Allergies Active Allergy Reactions Criticality Noted Date Comments Penicillins 06/29/2011 Medications No known medications Social History Tobacco Use Types Packs/Day Years Used Date Smoking Tobacco: Never Alcohol Use Standard Drinks/Week Comments Yes 3.3 (1 standard drink = 0.6 oz p ure alcohol) Adolescent Education Answer Date Record ed Getting School Help Needed Not on file 07/20 Sex and Gender Information Value Date Recorded Sex Assigned at Not on file Legal Sex Male 3:11 AM UNIFORM MAKER Gender Identity Not on file Sexual Orientation Not on file Last Filed Vital Signs Vital Sign Reading Time Taken Comments Blood Pressure 148/80 07/20/2023 4:26 AM UNIFORM MAKER Pulse 75 07/20/2023 4:26 AM UNIFORM MAKER Temperature 36.9 C (98.5 F) 07/19/2023 9:06 PM UNIFORM MAKER Respiratory Rate 18 07/20/2023 4:26 AM UNIFORM MAKER Oxygen Saturation 99% 07/20/2023 4:26 AM UNIFORM MAKER Inhaled Oxygen Concentration - - Weight 88.5 kg (195 lb) 01/21/2014 2:22 AM CDT Height 185.4 cm (6' 1) 01/21/2014 2:22 AM CDT Body Mass Index 25.73 01/21/2014 2:22 AM CDT Plan of Treatment Health Maintenance Due Date Last Done Comments ADVANCE CARE PLANNING 1955 ANNUAL REVIEW OF HM ORDERS 1953 CT COLONOGRAPHY 1953 FIT 1953 FLEX SIG 1953 sDNA (Cologuard) 1955 HEPATITIS C SCREENING 08/09/1971 LIPID 1993 DTAP/TDAP/TD IMMUNIZATION (1 - Tdap) 02/03/2003 02/02/2003 ZOSTER IMMUNIZATION (1 of 2) 08/09/2003 FALL RISK ASSESSMENT 2018 MEDICARE ANNUAL WELLNESS VISIT 2018 Pneumococcal Vaccine: 65+ Years (1 of 1 - PCV) 2018 COLONOSCOPY 04/16/2021 04/16/2011 COLORECTAL CANCER SCREENING 04/16/2021 PHQ-2 (once per calendar year) 2023 COVID-19 Vaccine (1 - 2023-2 5 season) 2024 INFLUENZA VACCINE (#1) 2024 03/02/2003 GLUCOSE 07/19/2026 07/19/2023, 10/15/2012, 06/29/2011 RSV VACCINE (1 - 1-dose 75+ series) 2028 HPV IMMUNIZATION Aged Out No longer e ligible based on patient's age to complete this topic MENINGITIS IMMUNIZATION Aged Out No l onger eligible based on patient's age to complete this topic RSV MONOCLONAL ANTIBODY Aged Out No l onger eligible based on patient's age to complete this topic Procedures Procedure Name Priority Date/Time Associated Diagnosis Comments COMPREHENSIVE METABOLIC PANEL STAT 07/19/2023 9:09 PM UNIFORM MAKER from Last 3 Months or Most Recently Relevant to Health Maintenance Results * (ABNORMAL) Comprehensive metabolic panel (07/19/2023 9:09 PM UNIFORM MAKER) Sodium 139 135 - 145 mmol/L 07/19/2023 9:40 PM UNIFORM MAKER [facility] Comment:Reference intervals for this test were updated on 02/23/2023 to more accurately reflect our healthy population. There may be differences in the flagging of prior results with similar values performed with this method. Interpretation of those prior results can be made in the context of the updated reference intervals. Potassium 4.0 3.4 - 5.3 mmol/L 07/19/2023 9:40 PM [facility] MA[facility] Carbon Dioxide (CO2) 26 22 - 29 mmol/L 07/19/2023 9:40 PM [facility]IFORM MAKER [facility] Anion Gap 9 7 - 15 mmol/L 07/19/2023 9:40 PM [facility] Urea Nitrogen 12.5 8.0 - 23.0 mg/dL 07/19/2023 9:40 PM [facility] Creatinine 0.80 0.67 - 1.17 mg/dL 07/19/2023 9:40 PM [facility] GFR Estimate >90 >60 mL/min/1. 73m2 07/19/2023 9:40 PM [facility] Calcium 9.7 8.8 - 10.2 mg/dL 07/19/2023 9:40 PM [facility] Chloride 104 98 - 107 mmol/L 07/19/2023 9:40 PM [facility] Glucose 104(H) 70 - 99 mg/dL 07/19/2023 9:40 PM [facility] Alkaline Phosphatase 82 40 - 150 U/L 07/19/2023 9:40 PM [facility] Comment:Reference intervals for this test were updated on 04/13/2023 to more accurately reflect our healthy population. There may be differences in the flagging of prior results with similar values performed with this method. Interpretation of those prior results can be made in the context of the updated reference intervals. AST 16 0 - 45 U/L 07/19/2023 9:40 PM [facility] Comment:Reference intervals for this test were updated on 11/09/2022 to more accurately reflect our healthy population. There may be differences in the flagging of prior results with similar values performed with this method. Interpretation of those prior results can be made in the context of the updated reference intervals. ALT 20 0 - 70 U/L 07/19/2023 9:40 PM [facility] Comment:Reference intervals for this test were updated on 11/09/2022 to more accurately reflect our healthy population. There may be differences in the flagging of prior results with similar values performed with this method. Interpretation of those prior results can be made in the context of the updated reference intervals. Protein Total 7.2 6.4 - 8.3 g/dL 07/19/2023 9:40 PM [facility] Albumin 4.5 3.5 - 5.2 g/dL 07/19/2023 9:40 PM [facility] Bilirubin Total 0.2 <=1.2 mg/dL 07/19/2023 9:40 PM [facility] Blood BLOOD SPECIMEN / Unknown Venipuncture / Unknown 07/19/2023 9:09 PM UNIFORM MAKER 07/19/2023 9:12 PM UNIFORM MAKER us Elana Fleming MD LAB - BLOOD ORDERABLES Final R esult LABORATORY [facility] Lab [address] floor, [address] [place] [address], [facility] [phone] from Last 3 Months or Most Recently Relevant to Health Maintenance Insurance [employer] MEDICARE ADVANTAGE [employer] MEDICARE ADVANTAGE Care Teams Cinema Operator Relationship Specialty Start Date End Date Davonte Alvarado MD [facility] [address] [place] [address] PCP - General Family Practice 09/23/13
--- OUTSIDE RECORDS SUMMARY | 2024-04-22 23:15 | XMS_ITS | Continuity of Care Document ---
Author Organization [facility] Address [address] [address] [place] [address] Phone Care Team Providers Care Instructor Looping Name Role Phone Bobo MILLER, Jalen Unavailable Unavailable Advance Directives Directive Yes / No Effective Date File Name No Information Encounters Encounter Description Practice Location Reason(s) For Visit Diagnoses Date Provider Providers Copied on Encounter [facility], [address] [address], [place], [place], [id number], [place] tel:[phone] [facility] No Information Bobo MILLER Jalen. [address] [facility], [place], [place], [id number], [place]. tel:[phone] Referring Provider: Jaspal Edwards MD, [address] [facility] [place], [address]. tel:[phone] Family History Family Member Type Diagnosis Age At Onset No Information Payers Payer name Insurance type Covered constitution party ID Authoriza tion(s) No Information Social History [...]
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
--- OUTSIDE RECORDS SUMMARY | 2024-04-22 23:15 | XMS_ITS | Referral Summary ---
Author Organization [facility] Address [address] [place] [address] Care Team Providers Care Vitreo Retinal Surgeon Name Role Phone Davonte Alvarado MD Primary Care Provider [phone] Allergies Active Allergy Reactions Criticality Noted Date [...] on file Legal Sex Male 3:11 AM COPY CENTER ASSOCIATE Gender Identity Not on file Sexual Orientation Not on file Last Filed Vital Signs Vital Sign Reading Time Taken Comments Blood Pressure 148/80 07/20/2023 4:26 AM COPY CENTER ASSOCIATE Pulse 75 07/20/2023 4:26 AM COPY CENTER ASSOCIATE Temperature 36.9 C (98.5 F) 07/19/2023 9:06 PM COPY CENTER ASSOCIATE Respiratory Rate 18 07/20/2023 4:26 AM COPY CENTER ASSOCIATE Oxygen Saturation 99% 07/20/2023 4:26 AM COPY CENTER ASSOCIATE Inhaled Oxygen Concentration - - Weight 88.5 kg (195 lb) 01/21/2014 2:22 AM CDT Height 185.4 cm (6' 1) 01/21/2014 2:22 AM CDT Body Mass Index 25.73 01/21/2014 2:22 AM CDT Plan of Treatment Not on file Procedures Procedure Name Priority Date/Time Associated Diagnosis Comments COMPREHENSIVE METABOLIC PANEL STAT 07/19/2023 9:09 PM COPY CENTER ASSOCIATE from Last 3 Months or Most Recently Relevant to Health Maintenance Results * (ABNORMAL) Comprehensive metabolic panel (07/19/2023 9:09 PM [facility] Sodium 139 135 - 145 mmol/L 07/19/2023 9:40 PM [facility] Comment:Reference intervals for this test were updated on 02/23/2023 to more accurately reflect our healthy population. There may be differences in the flagging of prior results with similar values performed with this method. Interpretation of those prior results can be made in the context of the updated reference intervals. Potassium 4.0 3.4 - 5.3 mmol/L 07/19/2023 9:40 PM [facility] Carbon Dioxide (CO2) 26 22 - 29 mmol/L 07/19/2023 9:40 PM [facility] Anion Gap 9 7 - 15 mmol/L 07/19/2023 9:40 PM [facility] Urea Nitrogen 12.5 8.0 - 23.0 mg/dL 07/19/2023 9:40 PM [facility] Creatinine 0.80 0.67 - 1.17 mg/dL 07/19/2023 9:40 PM [facility] GFR Estimate >90 >60 mL/min/1. 73m2 07/19/2023 9:40 PM [facility] Calcium 9.7 8.8 - 10.2 mg/dL 07/19/2023 9:40 PM [facility] Chloride 104 98 - 107 mmol/L 07/19/2023 9:40 PM [facility] Glucose 104(H) 70 - 99 mg/dL 07/19/2023 9:40 PM [facility] Alkaline Phosphatase 82 40 - 150 U/L 07/19/2023 9:40 PM [facility] Comment:Reference intervals for this test were updated on 04/13/2023 to more accurately reflect our healthy population. There may be differences in the flagging of prior results with similar values performed with this method. Interpretation of those prior results can be made in the context of the updated reference intervals. AST 16 0 - 45 U/L 07/19/2023 9:40 PM [facility] Comment:Reference intervals for this test were updated on 11/09/2022 to more accurately reflect our healthy population. There may be differences in the flagging of prior results with similar values performed with this method. Interpretation of those prior results can be made in the context of the updated reference intervals. ALT 20 0 - 70 U/L 07/19/2023 9:40 PM [facility] Comment:Reference intervals for this test were updated on 11/09/2022 to more accurately reflect our healthy population. There may be differences in the flagging of prior results with similar values performed with this method. Interpretation of those prior results can be made in the context of the updated reference intervals. Protein Total 7.2 6.4 - 8.3 g/dL 07/19/2023 9:40 PM COPY CENTER ASSOCIATE [facility] Albumin 4.5 3.5 - 5.2 g/dL 07/19/2023 9:40 PM [facility] CENTER ASSOCI[facility] Bilirubin Total 0.2 <=1.2 mg/dL 07/19/2023 9:40 PM [facility]ENTER ASSOC[facility] Blood BLOOD SPECIMEN / Unknown Venipuncture / Unknown 07/19/2023 9:09 PM COPY CENTER ASSOCIATE 07/19/2023 9:12 PM COPY CENTER ASSOCIATE Elana Fleming MD LAB - BLOOD ORDERABLES Final R esult LABORATORY [facility] Acute Care Lab [address], [address] [place] [address], [facility] [phone] from Last 3 Months or Most Recently Relevant to Health Maintenance Insurance [facility] MEDICARE ADVANTAGE [employer] MEDICARE ADVANTAGE Care Teams Vitreo Retinal Surgeon Relationship Specialty Start Date End Date Davonte Alvarado MD [facility] [address] [place] [id number] PCP - General Family Practice 09/23/13
== END 2024-04-19 08:03 | disposition home or self-care (01) ==
LOC: NFLDREF 04-22 23:13
PROVIDERS: PCP Family Medicine; Referring Provider Family Medicine; Visit Provider Family Medicine
DX: E78.1 Pure hyperglyceridemia (principal); R73.01 Impaired fasting glucose
CPT/HCPCS: 80053; 80061

== ENCOUNTER 2024-04-26 08:45 | Outpatient (CLI) | payer MEDICARE, SELFPAY ==
--- OUTSIDE RECORDS SUMMARY | 2024-04-26 08:48 | XMS_ITS | Clinical Summary ---
Author Organization [facility] Address [address] [place] [address] Care Team Providers Care Polysomnography Technician Name Role Phone Davonte Alvarado MD Primary Care Provider [phone] Allergies Active Allergy Reactions Criticality Noted Date [...] on file Legal Sex Male 3:11 AM TIGHT BARREL INSPECTOR Gender Identity Not on file Sexual Orientation Not on file Last Filed Vital Signs Vital Sign Reading Time Taken Comments Blood Pressure 148/80 07/20/2023 4:26 AM TIGHT BARREL INSPECTOR Pulse 75 07/20/2023 4:26 AM TIGHT BARREL INSPECTOR Temperature 36.9 C (98.5 F) 07/19/2023 9:06 PM TIGHT BARREL INSPECTOR Respiratory Rate 18 07/20/2023 4:26 AM TIGHT BARREL INSPECTOR Oxygen Saturation 99% 07/20/2023 4:26 AM TIGHT BARREL INSPECTOR Inhaled Oxygen Concentration - - Weight 88.5 [...] COMPREHENSIVE METABOLIC PANEL STAT 07/19/2023 9:09 PM TIGHT BARREL INSPECTOR from Last 3 Months or Most Recently Relevant to Health Maintenance Results * (ABNORMAL) Comprehensive metabolic panel (07/19/2023 9:09 PM TIGHT BARREL INSPECTOR) Sodium 139 135 - 145 mmol/L 07/19/2023 9:40 PM TIGHT BARREL INSPECTOR LAB[facility]ATORY Comment:Reference intervals for this test were updated on 02/23/2023 to more accurately reflect our healthy population. There may be differences in the flagging of prior results with similar values performed with this method. Interpretation of those prior results can be made in the context of the updated reference intervals. Potassium 4.0 3.4 - 5.3 mmol/L 07/19/2023 9:40 PM TIGHT BARREL INSPECTOR LABORATORY Carbon Dioxide (CO2) 26 22 - 29 mmol/L 07/19/2023 9:40 PM TIGHT BARREL INSPECTOR LABORATORY Anion Gap 9 7 - 15 mmol/L 07/19/2023 9:40 PM [facility] Urea Nitrogen 12.5 8.0 - 23.0 mg/dL 07/19/2023 9:40 PM [facility] Creatinine 0.80 0.67 - 1.17 mg/dL 07/19/2023 9:40 PM [facility] GFR Estimate >90 >60 mL/min/1. 73m2 07/19/2023 9:40 PM [facility] Calcium 9.7 8.8 - 10.2 mg/dL 07/19/2023 9:40 PM [facility] Chloride 104 98 - 107 mmol/L 07/19/2023 9:40 PM [facility] Glucose 104(H) 70 - 99 mg/dL 07/19/2023 9:40 PM [facility] Alkaline Phosphatase 82 40 - 150 U/L 07/19/2023 9:40 PM [facility] Comment:Reference intervals for this test were updated on 04/13/2023 to more accurately reflect our healthy population. There may be differences in the flagging of prior results with similar values performed with this method. Interpretation of those prior results can be made in the context of the updated reference intervals. AST 16 0 - 45 U/L 07/19/2023 9:40 PM [facility] Comment:Reference intervals for this test were updated on 11/09/2022 to more accurately reflect our healthy population. There may be differences in the flagging of prior results with similar values performed with this method. Interpretation of those prior results can be made in the context of the updated reference intervals. ALT 20 0 - 70 U/L 07/19/2023 9:40 PM [facility] Comment:Reference intervals for this test were updated on 11/09/2022 to more accurately reflect our healthy population. There may be differences in the flagging of prior results with similar values performed with this method. Interpretation of those prior results can be made in the context of the updated reference intervals. Protein Total 7.2 6.4 - 8.3 g/dL 07/19/2023 9:40 PM [facility] Albumin 4.5 3.5 - 5.2 g/dL 07/19/2023 9:40 PM [facility] Bilirubin Total 0.2 <=1.2 mg/dL 07/19/2023 9:40 PM [facility] Blood BLOOD SPECIMEN / Unknown Venipuncture / Unknown 07/19/2023 9:09 PM TIGHT BARREL INSPECTOR 07/19/2023 9:12 PM TIGHT BARREL INSPECTOR us Elana Fleming MD LAB - BLOOD ORDERABLES Final R esult LABORATORY [facility] Acute [facility] Lab [address], [address] [place] [address], [facility] [phone] from Last 3 Months or Most Recently Relevant to Health Maintenance Insurance [employer] MEDICARE ADVANTAGE [employer] MEDICARE ADVANTAGE Care Teams Polysomnography Technician Relationship Specialty Start Date End Date Davonte Alvarado MD [facility] [address] [place] [address] PCP - General Family Practice 09/23/13
--- OUTSIDE RECORDS SUMMARY | 2024-04-26 08:48 | XMS_ITS | Referral Summary ---
Author Organization [facility] Address [address] [place] [address] Care Team Providers Care Clinical Biochemist Name Role Phone Davonte Alvarado MD Primary Care Provider [phone] Allergies Active Allergy Reactions Criticality Noted Date [...] on file Legal Sex Male 3:11 AM ROPE MAKER Gender Identity Not on file Sexual Orientation Not on file Last Filed Vital Signs Vital Sign Reading Time Taken Comments Blood Pressure 148/80 07/20/2023 4:26 AM ROPE MAKER Pulse 75 07/20/2023 4:26 AM ROPE MAKER Temperature 36.9 C (98.5 F) 07/19/2023 9:06 PM ROPE MAKER Respiratory Rate 18 07/20/2023 4:26 AM ROPE MAKER Oxygen Saturation 99% 07/20/2023 4:26 AM ROPE MAKER Inhaled Oxygen Concentration - - Weight 88.5 kg (195 lb) 01/21/2014 2:22 AM CDT Height 185.4 cm (6' 1) 01/21/2014 2:22 AM CDT Body Mass Index 25.73 01/21/2014 2:22 AM CDT Plan of Treatment Not on file Procedures Procedure Name Priority Date/Time Associated Diagnosis Comments COMPREHENSIVE METABOLIC PANEL STAT 07/19/2023 9:09 PM ROPE MAKER from Last 3 Months or Most Recently Relevant to Health Maintenance Results * (ABNORMAL) Comprehensive metabolic panel (07/19/2023 9:09 PM [facility]) [facility] [address] Sodium 139 135 - 145 mmol/L 07/19/2023 9:40 PM [facility] Comment:Reference intervals for this test were updated on 02/23/2023 to more accurately reflect our healthy population. There may be differences in the flagging of prior results with similar values performed with this method. Interpretation of those prior results can be made in the context of the updated reference intervals. Potassium 4.0 3.4 - 5.3 mmol/L 07/19/2023 9:40 PM [facility] Carbon Dioxide (CO2) 26 22 - 29 mmol/L 07/19/2023 9:40 PM [facility] Anion Gap 9 7 - 15 mmol/L 07/19/2023 9:40 PM [facility] Urea Nitrogen 12.5 8.0 - 23.0 mg/dL 07/19/2023 9:40 PM [facility] Creatinine 0.80 0.67 - 1.17 mg/dL 07/19/2023 9:40 PM [facility] GFR Estimate >90 >60 mL/min/1. 73m2 07/19/2023 9:40 PM [facility] Calcium 9.7 8.8 - 10.2 mg/dL 07/19/2023 9:40 PM [facility] Chloride 104 98 - 107 mmol/L 07/19/2023 9:40 PM [facility] Glucose 104(H) 70 - 99 mg/dL 07/19/2023 9:40 PM [facility] Alkaline Phosphatase 82 40 - 150 U/L 07/19/2023 9:40 PM [facility] Comment:Reference intervals for this test were updated on 04/13/2023 to more accurately reflect our healthy population. There may be differences in the flagging of prior results with similar values performed with this method. Interpretation of those prior results can be made in the context of the updated reference intervals. AST 16 0 - 45 U/L 07/19/2023 9:40 PM [facility] Comment:Reference intervals for this test were updated on 11/09/2022 to more accurately reflect our healthy population. There may be differences in the flagging of prior results with similar values performed with this method. Interpretation of those prior results can be made in the context of the updated reference intervals. ALT 20 0 - 70 U/L 07/19/2023 9:40 PM [facility] Comment:Reference intervals for this test were updated on 11/09/2022 to more accurately reflect our healthy population. There may be differences in the flagging of prior results with similar values performed with this method. Interpretation of those prior results can be made in the context of the updated reference intervals. Protein Total 7.2 6.4 - 8.3 g/dL 07/19/2023 9:40 PM [facility] Albumin 4.5 3.5 - 5.2 g/dL 07/19/2023 9:40 PM [facility] Bilirubin Total 0.2 <=1.2 mg/dL 07/19/2023 9:40 PM [facility] Blood BLOOD SPECIMEN / Unknown Venipuncture / Unknown 07/19/2023 9:09 PM ROPE MAKER 07/19/2023 9:12 PM ROPE MAKER Elana Fleming MD LAB - BLOOD ORDERABLES Final R esult LABORATORY [facility] [address], [address] [place] [address], [facility] [phone] from Last 3 Months or Most Recently Relevant to Health Maintenance Insurance [facility] MEDICARE ADVANTAGE [employer] MEDICARE ADVANTAGE Care Teams Clinical Biochemist Relationship Specialty Start Date End Date Davonte Alvarado MD [facility] [address] [place] [phone] PCP - General Family Practice 09/23/13
--- OUTSIDE RECORDS SUMMARY | 2024-04-26 08:48 | XMS_ITS | Clinical Summary ---
Author Organization [facility] Address [place], [place] [address] Care Team Providers Care Net Mobile Developer Name Role Phone Feliciano Galloway MD Primary Care Provider [phone] Allergies Active Allergy Reactions Criticality Noted Date [...] 36.7 C (98.1 F) 05/31/2014 11:46 PM APPRENTICE CARPENTER Respiratory Rate 18 12/10/2021 10:5 8 AM CDT Oxygen Saturation 97% 12/10/2021 10: 58 AM CDT Inhaled Oxygen Concentration - - Weight 97.8 kg (215 lb 11.2 oz) 12/10/2021 10:58 AM CDT Pt weighed with shoes on. Height 185.4 cm (6' 1) 05/31/2014 6:21 PM APPRENTICE CARPENTER Body Mass Index 28.46 05/31/2014 6:21 PM APPRENTICE CARPENTER Plan of Treatment Upcoming Encounters Date Type Department Care Team (Late st Contact Info) Description 04/26/2024 9:00 AM APPRENTICE CARPENTER Ancillary Procedure [facility] & [address] [address] Health Maintenance Due Date Last Done Comments [...] through age 75 04/17/202104/17 (Completed outside of [facility]) COVID-19 vaccine series ( season) 2024 Influenza for age 65+ 01/30/2024 Procedures Procedure Name Priority Date/Time Associated Diagnosis Comments LIPID PANEL Early AM 06/01/2014 5:36 AM APPRENTICE CARPENTER from Last 3 Months or Most Recently Relevant to Health Maintenance Results * (ABNORMAL) Lipid Panel - In AM (06/01/2014 5:36 AM APPRENTICE CARPENTER) CHOLESTEROL,TOTAL 225(H) 100 - 199 mg/dL 06/01/2014 6:47 AM APPRENTICE CARPENTER [facility] TRIGLYCERIDES 239(H) <150 mg/dL 06/01/2014 6:47 AM APPRENTICE CARPENTER [facility] HDL CHOLESTEROL 33(L) >40 mg/dL 6:47 AM APPRENTICE CARPENTER [facility] NON-HDL CHOLESTEROL 192(H) <145 mg/dl 06/01/2014 6:47 AM APPRENTICE CARPENTER [facility] CHOL/HDL RATIO 6.82(H) <4.50 06/01/2014 6:47 AM APPRENTICE CARPENTER [facility] TRA [facility]ORATORY LDL CHOLESTEROL 144(H) <=130 mg/dL 06/01/2014 6:47 AM APPRENTICE CARPENTER [facility] PATIENT STATUS FASTING 06/01/2014 6:47 AM APPRENTICE CARPENTER [facility] Blood specimen (specimen) BLOOD SPECIMEN / Unknown Venipuncture / Unknown 06/01/2014 5:36 AM APPRENTICE CARPENTER 06/01/2014 6:15 AM APPRENTICE CARPENTER Jacquie Siu MD [facility] [address] [place] [address], from Last 3 Months or Most Recently Relevant to Health Maintenance Advance Directives * Full Code (Latest Code Status on File) Date Activated Date Inactivated Comments 05/31/2014 7:19 PM 06/01/2014 9:16 PM * Full Code Date Activated Date Inactivated Comments 04/08/2012 6:00 AM 04/08/2012 4:18 PM Care Teams Net Mobile Developer Relationship Specialty Start Date End Date Feliciano Galloway MD [address] [address] PCP - General Family Practice 08/26/21
--- OUTSIDE RECORDS SUMMARY | 2024-04-26 08:49 | XMS_ITS | Data Portability ---
Author Organization [facility], [facility] Address [address] [place] [address] Assessment Encounter Date Assessment Date Assessment LastModified [...] 023 [email or web address] [facility], [address], [place], [address], 3 10:52:49 urinalys is, dipstick 2022 023 [email or web address] [facility], [address], [place], [address], 3 11:48:44 PSA, serum or plasma 2023 024 [email or web address] [facility], [address], [place], [address], 4 11:56:11 Referral None recorded . Procedures None recorded . Surgeries None recorded . Imaging MRI, prostate , w/wo contrast 2023 024 [email or web address] [facility], [address], [place], [address], 4 08:47:46 Medication Orders None recorded . Patient TargetsNo targets recorded. Patient Instructions Encounter Date Encounter Id Patient Instructions Last Modified By Organization Details Last Modified Time 05/09/2020 [id number] Ignacio Wiggins angela has a new diagnosis [...] James cody Not available 05/09/2020 10:35:47 11/21/2020 [id number] [facility] escobar Not available 11/21/2020 [...] Not Available [facility] [address], [place], [address], 05/09/2020 10:10:35 11/22/19 21 11/21/2020 PSA, serum or plasm a PSA, Total 5.1 ng/ml Not Available [facility] [address], [place], [address], 11/21/2020 15:58:29 06/04/19 23 06/04/2022 PSA, serum or plasm a PSA 3.7 ng/mL 0-4.0 Not Available [facility] [address], [place], [address], 06/04/2022 10:52:36 08/21/1908/20/2022 urina lysis , dipst ick Color-Status Yellow Not Available [facility] [address], [place], [address], 08/20/2022 11:47:48 08/21/19 23 08/20/2022 urina lysis , dipst ick Clarity-Stat us Clear Not Available [facility] [address], [place], [address], 08/20/2022 11:47:48 08/21/19 23 08/20/2022 urina lysis , dipst ick Glucose-Stat us Negati ve Not Available [facility] [address], [place], [address], 08/20/2022 11:47:48 08/21/1908/20/2022 urina lysis , dipst ick Bilirubin-St atus Negati ve Not Available [facility] [address], [place], [address], 08/20/2022 11:47:48 08/21/19 23 08/20/2022 urina lysis , dipst ick Ketones-Stat us Negati ve Not Available [facility] [address], [place], [address], 08/20/2022 11:47:48 08/21/19 23 08/20/2022 urina lysis , dipst ick Sp [place]-Stat us 1.010 Not Available [facility] [address], [place], [address], 08/20/2022 11:47:48 08/21/19 23 08/20/2022 urina lysis , dipst ick Urobilinogen -Status 0.2 Not Available [facility] [address], [place], [address], 08/20/2022 11:47:48 08/21/19 23 08/20/2022 urina lysis , dipst ick Nitrates-Sta tus negati ve Not Available [facility] [address], [place], [address], 08/20/2022 11:47:48 08/21/19 23 08/20/2022 urina lysis , dipst ick Blood-Status Trace Not Available [facility] [address], [place], [address], 08/20/2022 11:47:48 08/21/19 23 08/20/2022 urina lysis , dipst ick Leuko-Status Negati ve Not Available [facility] [address], [place], [address], 08/20/2022 11:47:48 08/21/19 23 08/20/2022 urina lysis , dipst ick Specimen Type Voided Not Available [facility] [address], [place], [address], 08/20/2022 11:47:48 06/23/19 24 06/23/2023 PSA, serum or plasm a PSA 8.8 ng/mL 0-4.0 Not Available [facility] [address], [place], [address], 06/23/2023 11:55:45 05/10/20 20 04/30/2020 bladd er scan (PROC ) No observ ation record ed. [email or web address] Not Available 2019 08:41:41 11/23/19 21 11/21/2020 bladd er scan (PROC ) No observ ation record ed. [email or web address] Not Available 2022 12:22:22 07/05/19 24 07/03/2023 MRI, prost ate, w/wo contr ast No observ ation record ed. [facility] [address], [place], [address], 07/09/2023 11:17:20 Result Notes None recorded. Problems Name Problem SNOMED Code Status Onset Date Resolution Date Notes Provider Name and Address Organization Details Recorded Time Prostate specific antigen above reference range 561083981 Active 2017 R97.20 : Elevated prostate specific antigen [PSA] Not Available [facility] 0 01:56:47 Problem Notes None recorded. Procedures Surgical History Date Name Laterality Status Provider Name and Address Organization Details Recorded Time 06/23/19 Bladder Scan completed Reena Rodriguez [facility] 06/23/2023 11:54:59 06/23/19 Blood Draw/TIP LENGTH CHECKER/PSA RESULTS completed Reena Rodriguez [facility] 06/23/2023 11:51:01 08/21/19 23 Bladder Scan completed Ruby Jay PA-C [address], [place], [address], [facility] 08/20/2022 11:57:53 06/04/19 23 Blood Draw/TIP LENGTH CHECKER/PSA RESULTS completed Reena Rodriguez [facility] 06/04/2022 10:52:32 11/22/19 Bladder Scan completed Saul Ramirez [facility] 11/21/2020 15:59:43 11/22/19 Blood Draw/TIP LENGTH CHECKER/PSA RESULTS completed Saul Ramirez [facility] 11/21/2020 15:58:19 12/10/20 20 Bladder Scan completed Saul Ramirez [facility] 05/09/2020 10:02:29 05/09/20 20 Blood Draw/TIP LENGTH CHECKER/PSA RESULTS completed Saul Ramirez [facility] 05/09/2020 10:02:46 04/17/20 11 Colonoscopy completed Nikky Galindo [facility] 01/17/2021 15:48:20 Imaging Results Imaging Date Name Status LastModified by Organiz ation Details LastModified Time 04/30/2020 bladder scan (PROC) completed [email or web address] Information not available 05/13/2020 08:41:41 11/21/2020 bladder scan (PROC) completed [email or web address] Information not available 06/04/2022 12:22:22 07/03/2023 MRI, prostate, w/wo contrast completed MONTROSE [facility] [address], [place], [address], 07/09/2023 11:17:20 Procedure Notes None recorded. Medical Equipment None Reported. Allergies Allergen ID Allergen Name Allergen Category Reaction Reaction Severity Criticality Documentation Date Start Date Code Code System Note Provider Name and Address Organization Details Recorded Time [id number] Penicilli n Not available Not available Not available Not available 11/16/20192017 91977 RxNorm Not Available [facility] 0 00:44:34 Medications Name Sig Start Date [...] Updated DateTime 06/04/2022 185.42 cm 27 kg/m2 67671.44 g Reena Rodriguez [facility] 06/04/2022 10:52:10 Date Recorded Body height Body mass index (BMI) Body weight Provider Name and Address Organization Details Last Updated DateTime 08/20/2022 185.42 cm 27 kg/m2 74723.44 g Jeana Hernandez [facility] 08/20/2022 11:28:21 Date Recorded Body height Body mass index (BMI) Body weight Provider Name and Address Organization Details Last Updated DateTime 06/23/2023 185.42 cm 25.1 kg/m2 31012.55 g Reena Rodriguez [facility] 06/23/2023 11:56:26 Date Recorded Body height Body mass index (BMI) Body weight Provider Name and Address Organization Details Last Updated DateTime 05/09/2020 185.42 cm 27 kg/m2 14711.44 g Saul James [facility] 05/09/2020 09:59:27 Date Recorded Body height Body mass index (BMI) Body weight Provider Name and Address Organization Details Last Updated DateTime 11/21/2020 185.42 cm 27 kg/m2 19392.44 radha Hughes James [facility] 11/21/2020 15:56:27 Social History Question Answer Notes LastModified by Organizat ion Details LastModified Time Tobacco Smoking Status Never Smoker Saul James [facility] 05/09/2020 09:59:39 What Is Your Level Of [...] available 2019 09:59:37 Medical History Condition Response Diabetes N High Blood Pressure N Cancer N Kidney Stones N Depression N High Cholesterol Y Immunizations Vaccine Type Date Status Provider Name and Address Organization Details Recorded Time Influenza, split virus, trivalent, preservative 03/02/2003 completed Celina mo [facility] 04/01/2023 11:26:54 Td (adult), 2 Lf tetanus toxoid, preservative free, adsorbed 02/02/2003 completed Celina mo [facility] 04/01/2023 11:26:54 Past Encounters Encounter ID Performer Location Encounter Start Date Encounter Closed Date Diagnosis/Indication Diagnosis SNOMED-CT Code Diagnosis ICD10 Code [id number] Saul [facility] 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 [place] [address] 11/21/2020 15:44:58 11/22/2020 11:44:06 Prostate specific antigen above reference range 863797209 R97.20 Induration penis plastica 1599582 N48.6 [id number] Sterling Bass MD [facility] [address] [place] [address] 06/04/2022 10:46:23 06/08/2022 08:13:54 Prostate specific antigen above reference range 949885835 R97.20 Induration penis plastica 6814798 N48.6 [id number] Ruby Jay PA-C [facility] [address] [place] [address] 08/20/2022 11:26:42 08/21/2022 10:53:31 Retention of urine 390411917 R33.9 Prostate s pecific antigen above reference range 411375317 R97.20 Induration penis plastica 4155920 N48.6 Blood in urine 79077561 R31.9 [id number] [facility] [address] [place] [address] 06/23/2023 11:04:50 06/23/2023 15:14:43 Prostate specific antigen above reference range 764215615 R97.20 Induration penis plastica 8485055 N48.6 Slowing of urinary stream 94920208 R39.12 Health Concerns Section Related Observation LastModified by Organization Detai ls LastModified Time None Recorded Concern Status LastModified by Organization Details LastModified Time None Recorded Advance Directives Directive None Recorded Payers Encounter Date Sequence Insurance Name Policy Number Policy Jaeger Covered Member ID Jaeger Member ID Guarantor Name 05/09/2020 1 [place] (MEDICARE [place]AC[place] PPO) [id number] Ignacio Tomas [id number] 06/04/2022 1 [facility] (MEDICARE REPLACEMENT/AD VANTAGE - PPO) [id number] Ignacio Tomas [id number] 08/20/2022 1 [facility] (MEDICARE REPLACEMENT/AD VANTAGE - PPO) [id number] Ignacio Tomas [id number] 06/23/2023 1 [facility] (MEDICARE REPLACEMENT/AD VANTAGE - PPO) [id number] Ignacio Tomas [id number] Notes Date Note Type Note Provider Name [...] pain No softening of erections . Saul mo [place] [facility] 05/09/2020 10:36:39 11/21/2020 text/html 10-14-17 s/p [...] painful, now it's gone.. Saul Ramirez null, [facility] 11/21/2020 16:27:00 06/04/2022 text/html [id number] s/p [...] today = 3.7 ng/mL Sterling Bass MD [address] [place] [address],[address], [place], [address], [facility] 06/04/2022 12:23:18 08/20/2022 text/html 5-17-18 [...] a few days later was seen at [place] [facility] on 08/07 for inability to void. [...] negPVR today 92 cc Ruby Jay PA-C [address] [place] [address],[address], [place], [address], [facility] 08/20/2022 17:40:09 06/23/2023 text/html 10-14-17 [...] a few days later was seen at [place] [facility] on 08/07 for inability to void. [...] PSA today 8.8 ng/mL Sterling Bass MD [address], [place], [address], [facility] 06/23/2023 13:48:56
== END 2024-04-26 08:46 | disposition home or self-care (01) ==
LOC: RAD 08:46
PROVIDERS: PCP Family Medicine; Visit Provider Family Medicine
DX: I77.810 Thoracic aortic ectasia (principal); I35.1 Nonrheumatic aortic (valve) insufficiency
CPT/HCPCS: 93306

== ENCOUNTER 2025-04-11 08:53 | Outpatient (CLI) | payer MEDICARE, SELFPAY | END 2025-04-11 08:54 | disposition home or self-care (01) | LOC: NFLDREF 04-17 15:50 | PROVIDERS: PCP Family Medicine; Referring Provider Family Medicine; Visit Provider Family Medicine | DX: Z00.00 Encounter for general adult medical examination without abnormal findings (principal); E78.1 Pure hyperglyceridemia | CPT/HCPCS: 80053; 80061 ==